=== PATIENT | female | born 1950 | race Caucasian/White ===

== ENCOUNTER 2020-02-29 15:00 | Outpatient (CLI) | payer MEDICARE ==
--- NOTE | 2020-02-29 15:56 | XRAY Report ---
PROCEDURE: Ankle 3 View RT INDICATIONS: RIGHT ANKLE PAIN TECHNIQUE: 3 views of the ankle were acquired. COMPARISON: None FINDINGS: Bones: No fractures or dislocations of the ankle. There is an avulsion fracture of the base of the f ifth metatarsal. Ankle mortise is normally aligned. No suspicious bony lesions. Soft tissues: No tibiotalar joint effusion. Achilles tendon appears normal. IMPRESSION: 1. No acute abnormality of the right ankle. 2. Avulsion fracture of the base of the fifth metatarsal. See separately dictated x-ray of the right foot. Reviewed by: Sagar Caldwell on 02/29/2020 3:54 PM PST Approved by: Sagar Caldwell on 02/29/2020 3:54 PM PST Station ID: [id number]
--- NOTE | 2020-02-29 15:58 | XRAY Report ---
PROCEDURE: Foot 3 View RT INDICATIONS: RIGHT FOOT PAIN TECHNIQUE: 3 views of the foot were acquired. COMPARISON: None FINDINGS: Bones: There is an avulsion fracture of the base of the fifth metatarsal. There is a hallux valgus d eformity of the great toe with joint space narrowing and osteophytes of the first metatarsophalangeal joint. Soft tissues: No tibiotalar joint effusion. Achilles tendon appears normal. IMPRESSION: 1. No acute abnormality of the right ankle. 2. Avulsion fracture of the base of the fifth metatarsal. See separately dictated x-ray of the right foot. Reviewed by: Sagar Caldwell on 02/29/2020 3:56 PM [facility] Approved by: Sagar Caldwell on 02/29/2020 3:56 PM [facility] Station ID: [id number]
== END 2020-02-29 23:59 | disposition home or self-care (01) ==
LOC: DI.WCP 15:00
PROVIDERS: ATTEND Family Medicine
DX: S92.351A Displaced fracture of fifth metatarsal bone, right foot, initial encounter for closed fracture (principal)

== ENCOUNTER 2020-05-03 08:54 | Outpatient (CLI) | payer MEDICARE | END 2020-05-03 23:59 | disposition EMS.NT | LOC: EMS 08:54 | DX: R51.9 Headache, unspecified (principal); R42 Dizziness and giddiness ==

== ENCOUNTER 2020-05-10 08:00 | Outpatient (CLI) | payer MEDICARE ==
[2020-05-10 11:59] LABS: BASOPHILS % (AUTO) 0.5 %; EOSINOPHILS # (AUTO) 0.1 10^3/uL (0.0-0.7); EOSINOPHILS % (AUTO) 1.8 %; HGB - HEMOGLOBIN 14.9 g/dL (12.0-16.0); LYMPHOCYTES # (AUTO) 2.3 10^3/uL (1.5-3.5); LYMPHOCYTES % (AUTO) 29.9 %; MEAN CORPUSCULAR HEMOGLOBIN 32.5 pg (27.0-31.0); MEAN CORPUSCULAR VOLUME 101.7 fL (81.0-99.0); MONOCYTES # (AUTO) 0.6 10^3/uL (0.0-1.0); MONOCYTES % (AUTO) 7.3 %; NEUTROPHILS # (AUTO) 4.7 10^3/uL (1.5-6.6); PLT - PLATELET COUNT 290 10^3/uL (130-450); RED BLOOD COUNT 4.58 10^6/uL (4.20-5.40); RED CELL DISTRIBUTION WIDTH 11.9 % (12.0-15.0); WHITE BLOOD COUNT 7.8 x10^3/uL (4.8-10.8)
[2020-05-10 12:29] LABS: ALBUMIN/GLOBULIN RATIO 1.4 (1.0-2.2); ALKALINE PHOSPHATASE 59 IU/L (42-121); ALT ALANINE AMINOTRANSFERASE 17 IU/L (10-60); AST ASPARTATE AMINOTRANSFERASE 16 IU/L (10-42); BILIRUBIN,TOTAL 0.5 mg/dL (0.2-1.0); BUN - BLOOD UREA NITROGEN 14 mg/dL (6-20); CALCIUM 9.1 mg/dL (8.5-10.3); CARBON DIOXIDE - CO2 31 mmol/L (21-32); CHLORIDE 101 mmol/L (101-111); CHOL/HDL RATIO 4.4 (<4.4); CHOLESTEROL 296 mg/dL; CREATININE 0.7 mg/dL (0.4-1.0); GLUCOSE 109 mg/dL (70-100); HDL CHOLESTEROL 67 mg/dL; LDL CHOLESTEROL,CALCULATED 204 mg/dL; TOTAL PROTEIN 6.8 g/dL (6.7-8.2); VLDL CHOLESTEROL 25 mg/dL
== END 2020-05-10 23:59 | disposition home or self-care (01) ==
LOC: LAB.WCP 08:00
PROVIDERS: ATTEND Nurse Practitioner
DX: K13.0 Diseases of lips (principal); E03.9 Hypothyroidism, unspecified; Z79.899 Other long term (current) drug therapy
CPT/HCPCS: 36415; 80053; 80061; 83721; 84443; 85025

== ENCOUNTER 2020-06-29 14:12 | Outpatient (CLI) | payer MEDICARE ==
--- NOTE | 2020-06-29 23:03 | Ultrasound Report ---
PROCEDURE: Duplex Ext Veins Left INDICATIONS: CLAUDICATION LEG, LEFT TECHNIQUE: Real-time imaging, as well as color and pulse Doppler interrogation, were performed of the lower extr emity deep veins from the inguinal ligament to the popliteal fossa. COMPARISON: None. FINDINGS: The deep veins are normally compressible, and free of intraluminal thrombus. Color and pu lse Doppler demonstrate normal phasic intraluminal flow. There is normal augmentation response to di stal compression maneuver. There is also a 1.7 x 1.4 x 1.3 cm Quick's cyst IMPRESSION: 1. No deep venous thrombosis of the left lower extremity. 2. There is a 1.7 cm Quick's cyst. Reviewed by: Bert Mcdaniel on 06/29/2020 10:01 PM [facility] Approved by: Bert Mcdaniel on 06/29/2020 10:01 PM [facility] Station ID: [id number]
--- NOTE | 2020-06-30 00:57 | Ultrasound Report ---
PROCEDURE: Duplex Lwr Ext Arterial Bilat INDICATIONS: CLAUDICATION LEG, LEFT TECHNIQUE: Color and pulse Doppler interrogation was performed of both lower extremity arterial systems, with im age documentation. COMPARISON: None. FINDINGS: Right lower extremity: Common femoral artery: 137 cm/sec, with triphasic flow. Deep femoral artery: 83 cm/sec, with biphasic flow. Proximal superficial femoral artery: 113 cm/sec, with biphasic flow. Mid superficial femoral artery: 121 cm/sec, with biphasic flow. Distal superficial femoral artery: 71 cm/sec, with biphasic flow. Popliteal artery: 60 cm/sec, with triphasic flow. Posterior tibial artery: 61 cm/s, 64 cm/s, 77 cm/sec, with biphasic flow. Anterior tibial artery: 63 cm/s, 58 cm/s cm/sec, with flow. Dorsalis pedis: 59 cm/s, with biphasic flow. Sandhu-scale imaging description: There are scattered mild atherosclerotic plaque. Left lower extremity: Common femoral artery: 144 cm/sec, with triphasic flow. Deep femoral artery: 33 cm/sec, with biphasic flow. Proximal superficial femoral artery: 92 cm/sec, with biphasic flow. Mid superficial femoral artery: 122 cm/sec, with biphasic flow. Distal superficial femoral artery: 62 cm/sec, with biphasic flow. Popliteal artery: 47 cm/sec, with biphasic flow. Posterior tibial artery: 44 cm/s, 59 cm/s, T2 cm/sec, with biphasic flow. Anterior tibial artery: 35 cm/s, 47 cm/s cm/sec, with biphasic flow. Dorsalis pedis: 31 cm/s, with biphasic flow. Sandhu-scale imaging description: There are scattered mild atherosclerotic plaque. IMPRESSION: 1. No high-grade hemodynamically significant stenosis demonstrated within the right or left lower ext remity arteries. Reviewed by: David Billings MD on 06/30/2020 12:55 AM PDT Approved by: David Billings MD on 06/30/2020 12:55 AM PDT Station ID: [id number]
== END 2020-06-29 14:13 | disposition home or self-care (01) ==
LOC: DI 14:12
PROVIDERS: ATTEND Nurse Practitioner
DX: R22.42 Localized swelling, mass and lump, left lower limb (principal); M71.22 Synovial cyst of popliteal space [Baker], left knee
CPT/HCPCS: 93925

== ENCOUNTER 2020-10-24 14:40 | Outpatient (CLI) | payer MEDICARE ==
--- NOTE | 2020-10-24 17:10 | MRI Report ---
PROCEDURE: Lumbar Spine W/O INDICATIONS: SCIATICA TECHNIQUE: Noncontrast sagittal T1 spin echo and T2 fast echo, sagittal STIR, axial T1 and T2 fast spin echo thr ough the lumbar spine. In cases with scoliosis, additional coronal T2 fast spin echo may be performe d. COMPARISON: None. FINDINGS: Image quality: Excellent. Alignment and Curvature: No plain films are available for comparison. Thus, for numbering purposes, 5 lumbar type vertebral bodies will be presumed for the current report. This should be confirmed with plain film correlation prior to any lumbar spinal intervention. There is mild grade 1 anterolisthesi s of L4 on L5. Bone Marrow: Marrow is of normal overall signal. No acute vertebral body compression fractures. Th ere is minimal reactive signal throughout the end plates of the lumbar and lower thoracic spine. Spinal Cord: Conus medullaris terminates at the upper L2 level. Visualized cord demonstrates normal signal and size. Paraspinous Soft Tissues: No paravertebral masses. T12-L1: Mild disc height loss and desiccation. No significant canal, nor foraminal stenosis. L1-L2: Mild disc height loss and desiccation. Mild diffuse disc bulge. Mild facet and ligament fla vum hypertrophy. Mild epidural lipomatosis. Mild canal stenosis. Mild bilateral foraminal stenosis. L2-L3: Mild disc desiccation. Mild facet and ligament flavum hypertrophy. Mild epidural lipomatosi s. Mild canal stenosis. Mild bilateral foraminal stenosis. L3-L4: Mild disc height loss and desiccation. Mild diffuse disc bulge with small superimposed right paracentral disc protrusion. Mild facet and ligament flavum hypertrophy. Mild canal stenosis. Mild r ight greater than left foraminal stenosis. L4-L5: Mild disc height loss and moderate disc desiccation. Mild diffuse disc bulge. Moderate facet and ligament flavum hypertrophy. Mild epidural lipomatosis. Mild canal stenosis. Mild bilateral fora víctor stenosis. L5-S1: Mild disc height loss and desiccation. Mild diffuse disc bulge with superimposed broad-based left posterolateral protrusion. Mild bilateral facet hypertrophy. Mild canal stenosis. Moderate righ t and mild left foraminal stenosis. Mild posterior deviation of the left S1 nerve root within the lat eral recess. IMPRESSION: 1. Multilevel degenerative disc and facet disease, as well as ligament flavum hypertrophy. 2. Mild multilevel canal stenoses. 3. Multilevel foraminal stenoses, worst at L5-S1 on the right where there is moderate foraminal steno sis. 4. Mild posterior deviation of the left S1 nerve root within the lateral recess at the L5-S1 disc spa ce level. Recommend correlation with clinical symptoms to ascertain relevance of this finding. Reviewed by: Anjali Parisi MD on 10/24/2020 4:09 PM [facility] Approved by: Anjali Parisi MD on 10/24/2020 4:09 PM [facility] Station ID: [id number]
== END 2020-10-24 14:41 | disposition home or self-care (01) ==
LOC: DI 14:40
PROVIDERS: ATTEND Internal Medicine
DX: M51.17 Intervertebral disc disorders with radiculopathy, lumbosacral region (principal); M48.07 Spinal stenosis, lumbosacral region

== ENCOUNTER 2021-02-13 12:17 | Emergency (ER) | payer MEDICARE ==
[2021-02-13] MEDS ORDERED: PROMETHAZINE INJ 25 MG in SODIUM CHLORIDE 0.9% 50 ML IV STA (12:49)
[2021-02-13] MEDS ORDERED: SODIUM CHLORIDE 0.9% 1,000 ML IV STA (12:49)
[2021-02-13] MEDS ORDERED: diphenhydrAMINE INJ 50 MG/ML VIAL IVP STA (12:49)
[2021-02-13] MEDS ORDERED: KETOROLAC 30 MG/ML VIAL IVP STA (12:49)
[2021-02-13] MEDS ORDERED: PROMETHAZINE 25 MG/1 ML VIAL ONE (13:06)
[2021-02-13 13:07] LABS: BASOPHILS % (AUTO) 0.2 %; HCT - HEMATOCRIT 47.8 % (37.0-47.0); HGB - HEMOGLOBIN 16.4 g/dL (12.0-16.0); LYMPHOCYTES # (AUTO) 1.2 10^3/uL (1.5-3.5); MEAN CORPUSCULAR HEMOGLOBIN 32.5 pg (27.0-31.0); MEAN CORPUSCULAR HGB CONC 34.3 g/dL (32.0-36.0); MEAN CORPUSCULAR VOLUME 94.8 fL (81.0-99.0); MEAN PLATELET VOLUME 8.4 fL (7.9-10.8); MONOCYTES # (AUTO) 0.7 10^3/uL (0.0-1.0); NEUTROPHILS # (AUTO) 12.5 10^3/uL (1.5-6.6); NEUTROPHILS % (AUTO) 86.2 %; PLT - PLATELET COUNT 339 10^3/uL (130-450); RED BLOOD COUNT 5.04 10^6/uL (4.20-5.40); RED CELL DISTRIBUTION WIDTH 11.8 % (12.0-15.0); WHITE BLOOD COUNT 14.4 x10^3/uL (4.8-10.8)
--- NOTE | 2021-02-13 13:16 | ED Physician Documentation ---
History of Present Illness - Stated complaint Stated Complaint: MIGRAINE,VOMITING - Chief complaint Chief Complaint: Neuro - History obtained from History obtained from: Patient - History of Present Illness Timing: Last night Pain level max: 7 Pain level now: 7 - Additonal information Additional information: Patient is a 70-year-old female who presents to the emergency department complaining of vomiting. Patient states that she had a headache 2 days ago, but this has since resolved. This was consistent with her typical migraine headaches. She states she has been unable to keep her medications down since last night. Patient states that she has no headache currently. Patient states that she has chronic left leg pain. And has been unable to keep her gabapentin down. Therefore she states that her left leg pain has increased. This is no different than her chronic pain. She states she did have abdominal pain last night. The this has now resolved as well. No diarrhea or constipation. No fevers. No chills. No others have been sick. Currently still feeling nauseated. Review of Systems Constitutional: denies: Fever, Chills Ears: denies: Ear pain Nose: denies: Rhinorrhea / runny nose, Congestion Respiratory: denies: Cough GI: reports: Abdominal Pain (crampy last night), Nausea, Vomiting. denies: Diarrhea Skin: denies: Rash Musculoskeletal: denies: Neck pain, Back pain Neurologic: reports: Headache (2 days ago, none now, gradual onset. similar to her normal migraine) PD PAST MEDICAL HISTORY - Past Medical History Past Medical History: Yes Endocrine/Autoimmune: HyPOthyroidism Psych: Depression - Present Medications Home Medications: Ambulatory Orders Medication Instructions Recorded Confirmed Promethazine [Phenergan] 25 mg PO Q6H PRN #10 tab 02/13/21 - Allergies Allergies/Adverse Reactions: Allergies Allergy/AdvReac Type Severity Reaction Status Date / Time amlodipine Allergy Anaphylaxis Verified 02/13/21 12:39 annatto Allergy Anaphylaxis Verified 02/13/21 12:39 dexamethasone [From Decadron] Allergy Anaphylaxis Verified 02/13/21 12:39 doxycycline Allergy Anaphylaxis Verified 02/13/21 12:39 iodine Allergy Anaphylaxis Verified 02/13/21 12:39 lisinopril Allergy Anaphylaxis Verified 02/13/21 12:39 morphine Allergy Anaphylaxis Verified 02/13/21 12:39 Penicillins Allergy Anaphylaxis Verified 02/13/21 12:39 Pork/Porcine Containing Allergy Anaphylaxis Verified 02/13/21 12:39 Products povidone-iodine Allergy Anaphylaxis Verified 02/13/21 12:39 [From Betadine] shellfish derived Allergy Anaphylaxis Verified 02/13/21 12:39 Tetracyclines Allergy Anaphylaxis Verified 02/13/21 12:39 angiotensin receptor blockers AdvReac Edema Uncoded 02/13/21 12:39 - Social History Does the pt smoke?: No Smoking Status: Never smoker Does the pt drink ETOH?: Yes Does the pt have substance abuse?: No - Immunizations Immunizations are current?: Yes - POLST Patient has POLST: No PD ED PE NORMAL - Vitals Vital signs reviewed: Yes - General General: Alert and oriented X 3, No acute distress, Well developed/nourished - HEENT HEENT: Atraumatic, PERRL, EOMI, Ears normal, Moist mucous membranes - Neck Neck: Supple, no meningeal sign - Cardiac Cardiac: RRR, Strong equal pulses - Respiratory Respiratory: No respiratory distress, Clear bilaterally - Abdomen Abdomen: Normal bowel sounds, Soft, Non tender, Non distended - Derm Derm: Warm and dry - Extremities Extremities: No edema - Neuro Neuro: Alert and oriented X 3 - Psych Psych: Normal mood, Normal affect Results - Vitals Vitals: Vital Signs - 24 hr 02/13/21 02/13/21 02/13/21 12:26 12:48 13:02 Temperature 36.4 C L Heart Rate 106 H 91 90 Respiratory 24 21 20 Rate Blood Pressure 140/81 H 171/79 H 175/74 H O2 Saturation 99 94 99 02/13/21 02/13/21 13:30 14:01 Temperature Heart Rate 88 78 Respiratory 20 16 Rate Blood Pressure 160/79 H 175/92 H O2 Saturation 100 95 Oxygen O2 Source Room air - Labs Labs: Laboratory Tests 02/13/21 02/13/21 13:01 13:01 WBC 14.4 H RBC 5.04 Hgb 16.4 H Hct 47.8 H MCV 94.8 MCH 32.5 H MCHC 34.3 RDW 11.8 L Plt Count 339 MPV 8.4 Neut # (Auto) 12.5 H Lymph # (Auto) 1.2 L Slope # (Auto) 0.7 Eos # (Auto) 0.0 Baso # (Auto) 0.0 Absolute Nucleated RBC 0.00 Nucleated RBC % 0.0 Sodium 135 Potassium 3.8 Chloride 99 L Carbon Dioxide 22 Anion Gap 14.0 H BUN 15 Creatinine 0.8 Estimated GFR (MDRD) 71 L Glucose 172 H Calcium 9.4 Total Bilirubin 1.0 AST 17 ALT 17 Alkaline Phosphatase 66 Total Protein 7.4 Albumin 4.5 Globulin 2.9 Albumin/Globulin Ratio 1.6 Lipase 27 PD MEDICAL DECISION MAKING - ED course Complexity details: reviewed results, re-evaluated patient, considered differential, d/w patient ED course: Symptoms resolved with Toradol, Benadryl and Phenergan. Tolerating p.o. without difficulty. Abdomen remains soft, nontender nondistended on serial exam. Normal neurological exam. GCS 15. No indication for head CT. No headache. Leg pain returned to baseline. Likely a viral illness. We will place her on Phenergan and have her follow-up closely with her doctor for further care. Patient counseled regarding signs and symptoms for which I believe and urgent re-evaluation would be necessary. Patient with good understanding of and agreement to plan and is comfortable going home at this time This document was made in part using voice recognition software. While efforts are made to proofread this document, sound alike and grammatical errors may occur. Departure - Departure Disposition: 01 Home, Self Care Clinical Impression: Vomiting Qualifiers: Vomiting type: unspecified Vomiting Intractability: non-intractable Nausea presence: with nausea Qualified Code(s): R11.2 - Nausea with vomiting, unspecified Condition: Good Instructions: ED Nausea Vomiting Follow-Up: your,doctor in 1 week [Other] Prescriptions: Promethazine [Phenergan] 25 mg PO Q6H PRN #10 tab PRN Reason: Nausea / Vomiting Comments: Please follow-up with your doctor as needed for further care. Drink plenty of fluids. This should improve over the next 12 to 24 hours. Return if you worsen. Your prescription was sent to [facility] Discharge Date/Time: 02/13/21 14:02
[2021-02-13 13:19] LABS: ALBUMIN 4.5 g/dL (3.2-5.5); ALBUMIN/GLOBULIN RATIO 1.6 (1.0-2.2); CALCIUM 9.4 mg/dL (8.5-10.3); CREATININE 0.8 mg/dL (0.4-1.0); POTASSIUM 3.8 mmol/L (3.5-5.0); TOTAL PROTEIN 7.4 g/dL (6.7-8.2)
[2021-02-13 14:02] VITALS: BP 175/92
== END 2021-02-13 14:02 | disposition home or self-care (01) ==
LOC: ED 12:17
DX: R11.2 Nausea with vomiting, unspecified (principal); M79.605 Pain in left leg; G89.29 Other chronic pain
CPT/HCPCS: 36415; 80053; 83690; 85025; 96365; 96375; 99283; 99284; J1200; J7040

== ENCOUNTER 2021-12-05 07:43 | Day surgery (SDC) | payer MEDICARE ==
[~2021-12-05 07:43] MED LIST: CYCLOPENTOLATE 1% OPHTH DROPS 2 ML ONE; KETOROLAC 0.45% OPHTH DROPS ONE; PHENYLEPHRINE 2.5% OPHTH 2 ML DROPS ONE; PROPARACAINE 0.5% OPHTH DROPS 15 ML ONE
[2021-12-05] MEDS ORDERED: LACTATED RINGERS 1,000 ML IV ONE (08:19)
--- NOTE | 2021-12-05 08:52 | ANESTHESIA ---
Pre-Anesthesia VS, & Labs - Diagnosis left eye nuclear cataract - Procedure left eye cataract extraction with IOL implant Vital Signs: Temp Pulse Resp BP Pulse Ox 36.9 C 84 14 137/71 H 97 12/05/21 08:07 12/05/21 08:07 12/05/21 08:07 12/05/21 08:07 12/05/21 08:07 Height: 5 ft 2 in Weight (kg): 70 kg Body Mass Index: 28.2 BMI Classification: Overweight - NPO >8 hours - Is Patient ?: No Home Medications and Allergies Home Medications: Ambulatory Orders Acetaminophen [Tylenol] 650 mg PO Q6H PRN 12/04/21 Aspirin [Vazalore] 81 mg PO DAILY 12/04/21 Atorvastatin [Lipitor] 20 mg PO DAILY 12/04/21 Cetirizine HCl [Zyrtec] 10 mg PO DAILY 12/04/21 Cholecalciferol (Vitamin D3) [Vitamin D3] 1,250 mcg PO DAILY 12/04/21 Folic Acid 1 mg PO DAILY 12/04/21 Gabapentin [Neurontin] 600 mg PO TID 12/04/21 Levothyroxine Sodium [Levothyroxine] 100 mcg PO DAILY 12/04/21 Magnesium Oxide [Magnesium] 800 mg PO DAILY 12/04/21 Montelukast [Singulair] 10 mg PO QPM 12/04/21 Tramadol HCl [Ultram] 50 mg PO DAILY 12/04/21 Venlafaxine [Effexor] 37.5 mg PO DAILY 12/04/21 Acetaminophen [Tylenol] 650 mg PO Q6H PRN 12/04/21 Aspirin [Vazalore] 81 mg PO DAILY 12/04/21 Atorvastatin [Lipitor] 20 mg PO DAILY 12/04/21 Cetirizine HCl [Zyrtec] 10 mg PO DAILY 12/04/21 Cholecalciferol (Vitamin D3) [Vitamin D3] 1,250 mcg PO DAILY 12/04/21 Folic Acid 1 mg PO DAILY 12/04/21 Gabapentin [Neurontin] 600 mg PO TID 12/04/21 Levothyroxine Sodium [Levothyroxine] 100 mcg PO DAILY 12/04/21 Magnesium Oxide [Magnesium] 800 mg PO DAILY 12/04/21 Montelukast [Singulair] 10 mg PO QPM 12/04/21 Tramadol HCl [Ultram] 50 mg PO DAILY 12/04/21 Venlafaxine [Effexor] 37.5 mg PO DAILY 12/04/21 Allergies/Adverse Reactions: Allergies Allergy/AdvReac Type Severity Reaction Status Date / Time amlodipine Allergy Anaphylaxis Verified 02/13/21 12:39 annatto Allergy Anaphylaxis Verified 02/13/21 12:39 dexamethasone [From Decadron] Allergy Anaphylaxis Verified 02/13/21 12:39 doxycycline Allergy Anaphylaxis Verified 02/13/21 12:39 iodine Allergy Anaphylaxis Verified 02/13/21 12:39 lisinopril Allergy Anaphylaxis Verified 02/13/21 12:39 morphine Allergy Anaphylaxis Verified 02/13/21 12:39 Penicillins Allergy Anaphylaxis Verified 02/13/21 12:39 Pork/Porcine Containing Allergy Anaphylaxis Verified 02/13/21 12:39 Products povidone-iodine Allergy Anaphylaxis Verified 02/13/21 12:39 [From Betadine] shellfish derived Allergy Anaphylaxis Verified 02/13/21 12:39 Tetracyclines Allergy Anaphylaxis Verified 02/13/21 12:39 angiotensin receptor blockers AdvReac Edema Uncoded 02/13/21 12:39 Anes History & Medical History - Anesthetic History Anesthesia Complications: reports: No previous complications - Medical History Cardiovascular: reports: High cholesterol Pulmonary: reports: Asthma, Sleep apnea, CPAP use Gastrointestinal: reports: None Urinary: reports: None Neuro: reports: None Musculoskeletal: reports: Fibromyalgia Endocrine/Autoimmune: reports: HyPOthyroidism Blood Disorders: reports: None Skin: reports: None Smoking Status: Former smoker (quit 2008) Psychosocial: reports: Depression, Anxiety, Cannabis (edibles and smokes) History of Cancer?: No - Surgical History Gynecologic: reports: Hysterectomy Exam General: Alert, Oriented x3, Cooperative Dental: WNL Mouth Openin Fingerbreadth Neck Mobility: Normal Mallampati classification: II Thyromental Distance: 4-6 cm Mental/Cognitive Status: Alert/Oriented X3, Normal for patient Plan Anesthesia Type: MAC Consent for Procedure(s) Verified and Reviewed: Yes Code Status: Attempt Resuscitation ASA classification: 2-Mild systemic disease Is this case an emergency?: No
[2021-12-05] MEDS ORDERED: MIDAZOLAM 2 MG/2 ML VIAL ONE ×2 (09:00→09:30)
[2021-12-05] MEDS ORDERED: BRIMONIDINE 0.2% OPHTH DROPS 5 ML OPTH ONE (09:23)
[2021-12-05] MEDS ORDERED: VANCOMYCIN OPHTH (TOPICAL) 10 MG/ML SYRINGE TOP ONE (09:24)
[2021-12-05] MEDS ORDERED: TIMOLOL 0.5% OPHTH DROPS OPTH ONE (09:24)
[2021-12-05] MEDS ORDERED: EPINEPHrine 1 MG/ML AMP IR ONE (09:24)
[2021-12-05] MEDS ORDERED: BSS/LIDOCAINE/EPINEPHRINE 1 ML SYRINGE IO ONE (09:24)
[2021-12-05] MEDS ORDERED: TRIAMCIN/MOXIFLOX OPHTHALMIC 0.6 ML VIAL IO ONE ×2 (09:24→11:11)
[2021-12-05] MEDS ORDERED: PROPARACAINE 0.5% OPHTH DROPS 15 ML LEFTEYE ONE (09:24)
[2021-12-05] MEDS ORDERED: fentaNYL 100 MCG/2 ML VIAL ONE (09:26)
--- NOTE | 2021-12-05 09:37 | OPERATIVE REPORT ---
Operative Report - Other Other Information/Narrative: Date of Surgery: 12/05/21 Preop Dx: Visually significant cataract left eye. This was the first cataract surgery. Postop Dx: Same Procedure: Phacoemulsification with posterior chamber intraocular lens implant left eye Surgeon: Dr. Aravind Carson Anesthesia: Monitored anesthesia care Complications: None Operative Indications: This is a 71-year-old F with progressive vision loss in the left eye due to 3+ nuclear sclerotic cataract. Best corrected visual acuity was 20/40 with glare to 20/100 vision in the left eye. Indications for surgery were: - Overall decrease in vision - Difficulty seeing words on a computer screen - Difficulty reading - Difficulty seeing words, closed captions, or game scores on TV - Difficulty seeing street signs - Difficulty driving in low light or at night - Difficulty driving at night because of headlights from other vehicles - Difficulty with glare or bright lights in any situation The patient was consented at length concerning the risks and benefits of cataract surgery after which the patient expressed a desire to proceed with surgery. Operative Procedure: The patient was taken into OR#3 and placed under monitored anesthesia care. A surgical time-out was conducted confirming correct patient, correct procedure, and correct surgical site. The patient was given topical anesthesia and then prepped and draped in the usual sterile fashion. The eye was entered at the 6 and 3 oclock positions. Intracameral Shugarcaine was injected into the anterior chamber followed by a dispersive viscoelastic. A continuous-tear curvilinear capsulorhexis was performed. The nucleus was hydrodissected and phacoemulsified. The cortex was evacuated using automated infusion and aspiration. A cohesive viscoelastic was injected into the capsular bag and a 18.0 diopter intraocular lens was inserted into the bag. Infusion and aspiration were used to evacuate the viscoelastic materials from the eye. The wounds were hydrated and the eye inflated to physiologic pressure using balanced salt solution. Approximately 0.25ml of a mixture of triamcinolone and moxifloxacin was injected trans-sclerally into the vitreous in the inferotemporal quadrant using a 30 gauge cannula. An additional 0.55ml of a mixture of triamcinolone and moxifloxacin was injected subconjunctivally in the superior quadrant for infection and inflammation prophylaxis. Wound integrity was checked with Weck-Phuong sponges. The patient was taken from the operating r oom in good condition and given post-op instructions.
[2021-12-05] MEDS ORDERED: LACTATED RINGERS 800 ML IV ONE (09:38)
[2021-12-05 10:25] VITALS: BP 118/54
[2021-12-05] MEDS ORDERED: BSS/LIDOCAINE/EPINEPHRINE 1 ML VIAL ONE (11:11)
[2021-12-05] MEDS ORDERED: EPINEPHrine 1 MG/ML AMP ONE (11:11)
[2021-12-05] MEDS ORDERED: BRIMONIDINE 0.2% OPHTH DROPS 5 ML ONE (11:11)
[2021-12-05] MEDS ORDERED: VANCOMYCIN OPHTH (TOPICAL) 10 MG/ML SYRINGE ONE (11:11)
[2021-12-05] MEDS ORDERED: TIMOLOL 0.5% OPHTH DROPS ONE (11:11)
--- NOTE | 2021-12-05 14:29 | ANESTHESIA POST OP EVALUATION ---
Anesthesia Post Eval - Post Anesthesia Eval Vitals: Last Vital Signs Temp 36.8 C 12/05/21 10:05 Pulse 82 12/05/21 10:05 Resp 16 12/05/21 10:05 BP 118/54 L 12/05/21 10:05 Pulse Ox 93 12/05/21 10:05 CV Function Including HR & BP: Stable Pain Control: Satisfactory Nausea & Vomiting: Negative Mental Status: Baseline Respiratory Status: Airway Patent Hydration Status: Satisfactory Anesthesia Complications: None
== END 2021-12-05 07:44 | disposition home or self-care (01) ==
LOC: SDS 07:43
PROVIDERS: ATTEND Ophthalmology
DX: H25.12 Age-related nuclear cataract, left eye (principal); G47.33 Obstructive sleep apnea (adult) (pediatric); E03.9 Hypothyroidism, unspecified; F41.9 Anxiety disorder, unspecified; J45.909 Unspecified asthma, uncomplicated; Z87.891 Personal history of nicotine dependence
CPT/HCPCS: 66984; A9270; J3490; J7120

== ENCOUNTER 2022-03-06 07:39 | Day surgery (SDC) | payer MEDICARE ==
[2022-03-06] MEDS ORDERED: LACTATED RINGERS 1,000 ML IV ONE ×2 (08:11→09:05)
--- NOTE | 2022-03-06 08:17 | ANESTHESIA ---
Pre-Anesthesia VS, & Labs - Diagnosis RIGHT CATARACT - Procedure CATARACT EXTRACTIONS; LENS IMPLANT-RIGHT Vital Signs: Temp Pulse Resp BP Pulse Ox O2 Flow Rate 36.5 C 74 11 L 133/67 H 97 03/06/22 07:50 03/06/22 07:50 03/06/22 07:50 03/06/22 07:50 03/06/22 07:50 Height: 5 ft 2 in Weight (kg): 70.7 kg Body Mass Index: 28.5 BMI Classification: Overweight - NPO >8 hours - Is Patient ?: No Home Medications and Allergies Acetaminophen [Tylenol] 650 mg PO Q6H PRN 12/04/21 Aspirin [Vazalore] 81 mg PO DAILY 12/04/21 Atorvastatin [Lipitor] 20 mg PO DAILY 12/04/21 Cetirizine HCl [Zyrtec] 10 mg PO DAILY 12/04/21 Cholecalciferol (Vitamin D3) [Vitamin D3] 1,250 mcg PO DAILY 12/04/21 Folic Acid 1 mg PO DAILY 12/04/21 Gabapentin [Neurontin] 600 mg PO TID 12/04/21 Levothyroxine Sodium [Levothyroxine] 100 mcg PO DAILY 12/04/21 Magnesium Oxide [Magnesium] 800 mg PO DAILY 12/04/21 Montelukast [Singulair] 10 mg PO QPM 12/04/21 Tramadol HCl [Ultram] 50 mg PO DAILY 12/04/21 Venlafaxine [Effexor] 37.5 mg PO DAILY 12/04/21 Allergies/Adverse Reactions: Allergies Allergy/AdvReac Type Severity Reaction Status Date / Time amlodipine Allergy Anaphylaxis Verified 02/13/21 12:39 annatto Allergy Anaphylaxis Verified 02/13/21 12:39 dexamethasone [From Decadron] Allergy Anaphylaxis Verified 02/13/21 12:39 doxycycline Allergy Anaphylaxis Verified 02/13/21 12:39 iodine Allergy Anaphylaxis Verified 02/13/21 12:39 lisinopril Allergy Anaphylaxis Verified 02/13/21 12:39 morphine Allergy Anaphylaxis Verified 02/13/21 12:39 Penicillins Allergy Anaphylaxis Verified 02/13/21 12:39 Pork/Porcine Containing Allergy Anaphylaxis Verified 02/13/21 12:39 Products povidone-iodine Allergy Anaphylaxis Verified 02/13/21 12:39 [From Betadine] shellfish derived Allergy Anaphylaxis Verified 02/13/21 12:39 Tetracyclines Allergy Anaphylaxis Verified 02/13/21 12:39 angiotensin receptor blockers AdvReac Edema Uncoded 02/13/21 12:39 Anes History & Medical History - Anesthetic History Anesthesia Complications: reports: No previous complications Family history of Anesthesia Complications: Denies Family history of Malignant Hyperthermia: Denies - Medical History Cardiovascular: reports: Hypertension, High cholesterol Pulmonary: reports: Asthma, Sleep apnea, CPAP use Gastrointestinal: reports: None Urinary: reports: None Neuro: reports: None Musculoskeletal: reports: Fibromyalgia Endocrine/Autoimmune: reports: HyPOthyroidism Blood Disorders: reports: None Skin: reports: None Smoking Status: Former smoker (quit 2008) Psychosocial: reports: No issues indicated History of Cancer?: No - Surgical History Eyes Ears Nose Throat (EENT): reports: Cataracts Gynecologic: reports: Hysterectomy Exam General: Alert, Oriented x3, Cooperative, No acute distress Dental: WNL Mouth Openin Fingerbreadth Neck Mobility: Normal Mallampati classification: III Thyromental Distance: less than 4 cm Respiratory: Lungs clear, Normal breath sounds, No respiratory distress, No accessory muscle use Cardiovascular: Regular rate, Normal S1, Normal S2, No murmurs Mental/Cognitive Status: Alert/Oriented X3, Normal for patient Cognitive Status: Within normal limits Plan Anesthesia Type: MAC Consent for Procedure(s) Verified and Reviewed: Yes Code Status: Attempt Resuscitation ASA classification: 2-Mild systemic disease Is this case an emergency?: No
[2022-03-06] MEDS ORDERED: MIDAZOLAM 2 MG/2 ML VIAL ONE ×2 (08:36→08:50)
[2022-03-06] MEDS ORDERED: fentaNYL 100 MCG/2 ML VIAL ONE (08:51)
[2022-03-06] MEDS ORDERED: EPINEPHrine 1 MG/ML AMP IR ONE (08:58)
[2022-03-06] MEDS ORDERED: BRIMONIDINE 0.2% OPHTH DROPS 5 ML OPTH ONE (08:58)
[2022-03-06] MEDS ORDERED: BSS/LIDOCAINE/EPINEPHRINE 1 ML SYRINGE IO ONE (08:59)
[2022-03-06] MEDS ORDERED: TIMOLOL 0.5% OPHTH DROPS OPTH ONE (08:59)
[2022-03-06] MEDS ORDERED: TRIAMCIN/MOXIFLOX OPHTHALMIC 0.6 ML VIAL IO ONE ×2 (08:59→13:00)
[2022-03-06] MEDS ORDERED: PROPARACAINE 0.5% OPHTH DROPS 15 ML EACHEYE ONE (08:59)
[2022-03-06] MEDS ORDERED: VANCOMYCIN OPHTH (TOPICAL) 10 MG/ML SYRINGE TOP ONE (09:00)
[2022-03-06 09:12] VITALS: BP 117/55
--- NOTE | 2022-03-06 09:13 | OPERATIVE REPORT ---
Operative Report - Other Other Information/Narrative: Date of Surgery: 03/06/22 Preop Dx: Visually significant cataract right eye. Cataract surgery was performed in the left eye on . Postop Dx: Same Procedure: Phacoemulsification with posterior chamber intraocular lens implant right eye Surgeon: Dr. Aravind Carson Anesthesia: Monitored anesthesia care Complications: None Operative Indications: This is a 71-year-old F with progressive vision loss in the right eye due to 3+ nuclear sclerotic cataract. Best corrected visual acuity was 20/40 with glare to 20/70 vision in the right eye. Indications for surgery were: - Overall decrease in vision - Difficulty seeing words on a computer screen - Difficulty reading - Difficulty seeing words, closed captions, or game scores on TV - Difficulty seeing street signs - Difficulty driving in low light or at night - Difficulty driving at night because of headlights from other vehicles - Difficulty with glare or bright lights in any situation The patient was consented at length concerning the risks and benefits of cataract surgery after which the patient expressed a desire to proceed with [facility]. Operative Procedure: The patient was taken into OR#3 and placed under monitored anesthesia care. A surgical time-out was conducted confirming correct patient, correct procedure, and correct surgical site. The patient was given topical anesthesia and then prepped and draped in the usual sterile fashion. The eye was entered at the 6 and 3 oclock positions. Intracameral Shugarcaine was injected into the anterior chamber followed by a dispersive viscoelastic. A continuous-tear curvilinear capsulorhexis was performed. The nucleus was hydrodissected and phacoemulsified. The cortex was evacuated using automated infusion and aspiration. A cohesive viscoelastic was injected into the capsular bag and a 18.5 diopter intraocular lens was inserted into the bag. Infusion and aspiration were used to evacuate the viscoelastic materials from the eye. The wounds were hydrated and the eye inflated to physiologic pressure using balanced salt solution. Approximately 0.25ml of a mixture of triamcinolone and moxafloxacin was injected subconjunctivally in the superior quadrant for infection and inflammation prophylaxis. Wound integrity was checked with Weck- Phuong sponges. The patient was taken from the operating room in good condition and given post-op instructions.
[2022-03-06] MEDS ORDERED: TIMOLOL 0.5% OPHTH DROPS ONE (13:00)
[2022-03-06] MEDS ORDERED: VANCOMYCIN OPHTH (TOPICAL) 10 MG/ML SYRINGE ONE (13:00)
[2022-03-06] MEDS ORDERED: EPINEPHrine 1 MG/ML AMP ONE (13:00)
[2022-03-06] MEDS ORDERED: BRIMONIDINE 0.2% OPHTH DROPS 5 ML ONE (13:00)
[2022-03-06] MEDS ORDERED: BSS/LIDOCAINE/EPINEPHRINE 1 ML VIAL ONE (13:00)
== END 2022-03-06 07:40 | disposition home or self-care (01) ==
LOC: SDS 07:39
PROVIDERS: ATTEND Ophthalmology
DX: H25.11 Age-related nuclear cataract, right eye (principal); I10 Essential (primary) hypertension; J45.909 Unspecified asthma, uncomplicated; G47.30 Sleep apnea, unspecified; Z87.891 Personal history of nicotine dependence; Z98.42 Cataract extraction status, left eye
CPT/HCPCS: 66984; A9270; J3490; J7120

== ENCOUNTER 2023-03-19 11:59 | Outpatient (CLI) | payer MEDICARE ==
--- NOTE | 2023-03-19 15:19 | CT Report ---
PROCEDURE: Low Dose Lung Cancer Screen INDICATIONS: HX OF SMOKING TECHNIQUE: A CT scan of the chest was performed. Intravenous contrast media was not administered. Images were re corded and evaluated at appropriate window settings. Reformats: axial MIP of the chest, coronal and s agittal. For radiation dose reduction, the following was used: automated exposure control, adjustment of mA and/or kV according to patient size. COMPARISON: None. FINDINGS: Image quality: Excellent. Prior cancer history: None given Lungs and pleura: No pleural effusions. No pneumothorax. 4 mm pleural-based pulmonary nodule, right lower lobe, image 203/3. Mediastinum: Heart size is normal. No pericardial effusion. No large vessel abnormality. No mediastin al adenopathy by size criteria. Chest wall and lower neck: Thyroid is unremarkable. No axillary or supraclavicular adenopathy by size . Bones: No aggressive osseous abnormality. Upper Abdomen: Unremarkable. IMPRESSION: 4 mm pulmonary nodule, pleural-based, right lower lobe. Lung RAD: 2 - Benign. Recommendation: Continue annual screening in 12 Months with LDCT Non-Lung Significant Findings: None. Reviewed by: Doug Ayala MD on 03/19/2023 3:17 PM PST Approved by: Doug Ayala MD on 03/19/2023 3:17 PM PST Station ID: [id number]
== END 2023-03-19 12:00 | disposition home or self-care (01) ==
LOC: DI 11:59
PROVIDERS: ATTEND Physician Assistant
DX: Z12.2 Encounter for screening for malignant neoplasm of respiratory organs (principal); Z87.891 Personal history of nicotine dependence; R91.1 Solitary pulmonary nodule

== ENCOUNTER 2023-06-24 12:42 | Outpatient (CLI) | payer MEDICARE ==
--- NOTE | 2023-06-24 17:51 | DEXA Report ---
PROCEDURE: Dexa Spine and/or Hip INDICATIONS: POST MENOPAUSAL TECHNIQUE: Dual energy x-ray absorptiometry (DXA) was performed on a [employer] System. Regions measur ed are the AP Spine, femoral neck, and if needed forearm. COMPARISON: None FINDINGS: Lumbar Spine: L4-5 and L5-S1 were excluded secondary to hardware. Bone Mineral Density: 1.042 g/cm/cm,T score: -1.1. Left Femoral Neck: Bone Mineral Density: 0.803 g/cm/cm, T score: -1.7. Left Hip: Bone Mineral Density: 0.859 g/cm/cm,T score: -1.2. (T score greater or equal to -1.0: NORMAL) (T score from -1.1 to -2.4: OSTEOPENIA) (T score less than or equal to -2.5 to: OSTEOPOROSIS) Impression: By WHO criteria, this patient has low bone density (osteopenia). Patients with diagnosis of osteoporosis or osteopenia should have regular bone mineral density assess ment. For those eligible for Medicare, routine testing is allowed once every 2 years. Testing frequ ency can be increased for patients who have rapidly progressing disease or for those who are receivin g medical therapy to restore bone mass. Reviewed by: Leticia Bowens MD on 06/24/2023 5:49 PM PDT Approved by: Leticia Bowens MD on 06/24/2023 5:49 PM PDT Station ID: [id number]
== END 2023-06-24 12:43 | disposition home or self-care (01) ==
LOC: DI 12:42
PROVIDERS: ATTEND Physician Assistant
DX: M85.89 Other specified disorders of bone density and structure, multiple sites (principal)